=== PATIENT | female | born 1955 | race Caucasian/White ===

== ENCOUNTER 2024-08-18 09:39 | Outpatient (RCR) | payer OTHER, SELFPAY | END 2024-09-22 08:32 | disposition home or self-care (01) | LOC: HO.PTCHIC 09:39 | PROVIDERS: PCP Family Medicine; Visit Provider Family Medicine | DX: M54.12 Radiculopathy, cervical region (principal); M62.830 Muscle spasm of back | CPT/HCPCS: 97110; 97161 ==